=== PATIENT | male | born 2000 | race African-American/Black ===

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

== ENCOUNTER 2022-07-27 12:15 | Emergency (ER) | payer OTHER ==
[~2022-07-27 12:15] MED LIST changes: +BENTYL10 MG PO; +CARAFATE1 GM PO; +NEURONTIN100 M1 PO
== END 2022-07-27 13:54 | disposition home or self-care (01) ==
LOC: FER 12:15
DX: S20.212A Contusion of left front wall of thorax, initial encounter (principal); Y04.0XXA Assault by unarmed brawl or fight, initial encounter; Y92.241 Library as the place of occurrence of the external cause; Z28.310 Unvaccinated for COVID-19
CPT/HCPCS: 71101